=== PATIENT | female | born 1995 | race Caucasian/White ===

== ENCOUNTER 2017-03-03 22:43 | Emergency (ER) | payer MEDICAID ==
[2017-03-04 00:18] LABS: BASOPHIL % 0.5 % (0-2); PLATELET COUNT 204 x10^3mcL (130-400); RED CELL DISTRIBUTION WIDTH 13.5 % (11.5-14.5)
[2017-03-04 00:30] LABS: CALCIUM 8.4 mg/dL (8.5-10.1); CARBON DIOXIDE 28.2 mmol/L (21-32); CHLORIDE SERUM 103 mmol/L (98-107); CREATININE SERUM 0.6 mg/dL (0.6-1.0); GFR1 > 60 mL/min; GLUCOSE SERUM 75 mg/dL (74-106); POTASSIUM SERUM 3.4 mmol/L (3.5-5.1); SODIUM SERUM 138 mmol/L (136-145)
[2017-03-04 00:31] LABS: AMYLASE 54 U/L (25-115); LIPASE 110 IU/L (73-393)
[2017-03-04 00:44] LABS: microscopic required? YES; urine erythrocyte NEGATIVE (NEGATIVE)
[2017-03-04 01:21] VITALS: BP 110/65
== END 2017-03-04 01:21 | disposition home or self-care (01) ==
LOC: ED 22:43
PROVIDERS: Emergency Medicine
DX: K59.00 Constipation, unspecified (principal); E87.6 Hypokalemia
CPT/HCPCS: Q0092

== ENCOUNTER 2019-07-18 14:30 | Emergency (ER) | payer MEDICAID ==
[~2019-07-18] VITALS: Ht 170.2 cm; Wt 98.0 kg
[2019-07-18 14:34] VITALS: Ht 170.2 cm; Wt 98.0 kg
[2019-07-18 17:59] VITALS: BP 155/81
== END 2019-07-18 17:59 | disposition home or self-care (01) ==
LOC: ED 14:30
DX: J45.901 Unspecified asthma with (acute) exacerbation (principal); R03.0 Elevated blood-pressure reading, without diagnosis of hypertension
CPT/HCPCS: J7512; J7620

== ENCOUNTER 2020-10-07 14:49 | Emergency (ER) | payer MEDICAID ==
[~2020-10-07] VITALS: Ht 170.2 cm; Wt 108.9 kg
[2020-10-07 14:51] VITALS: Ht 170.2 cm; Wt 108.9 kg
[2020-10-07 16:45] VITALS: BP 120/77
== END 2020-10-07 16:45 | disposition home or self-care (01) ==
LOC: ED 14:49
DX: U07.1 COVID-19 (principal); J12.89 Other viral pneumonia; J45.909 Unspecified asthma, uncomplicated
CPT/HCPCS: J7512

== ENCOUNTER 2021-01-24 16:36 | Emergency (ER) | payer MEDICAID ==
[~2021-01-24] VITALS: Ht 167.6 cm; Wt 114.8 kg
[2021-01-24 16:44] VITALS: Ht 167.6 cm; Wt 114.8 kg
[2021-01-24] MEDS ORDERED: IBU600 M2 PO (17:10)
[2021-01-24 17:26] VITALS: BP 129/79
== END 2021-01-24 17:26 | disposition home or self-care (01) ==
LOC: ED 16:36
DX: M79.641 Pain in right hand (principal); J45.909 Unspecified asthma, uncomplicated